=== PATIENT | female | born 1985 | race Caucasian/White ===

== ENCOUNTER → 2024-05-22 06:23 | Day surgery (SDC) | payer OTHER, SELFPAY | LOC: GI 06:23 | PROVIDERS: ATTENDING PHYSICIAN Internal Medicine Gastroenterology | DX: Z12.11 Encounter for screening for malignant neoplasm of colon (principal); D12.2 Benign neoplasm of ascending colon; R12 Heartburn; K44.9 Diaphragmatic hernia without obstruction or gangrene; Z15.09 Genetic susceptibility to other malignant neoplasm; Z15.01 Genetic susceptibility to malignant neoplasm of breast; Z85.038 Personal history of other malignant neoplasm of large intestine | CPT/HCPCS: 45385; 43235; 88305 ==